=== PATIENT | male | born 1965 | race Caucasian/White ===

== ENCOUNTER 2017-11-13 07:30 | Outpatient (RCR) | payer OTHER, MEDICAID, SELFPAY ==
--- NOTE | 2017-10-31 15:56 | PT.OTN ---
Current Diagnoses Unspecified fracture of lower end of left femur, subsequent encounter for closed fracture with nonunion (11/01/17) Other fracture of left femur, initial encounter for closed fracture (11/01/17) Transition note: On October 31, 2017 our therapy services consisting of Speech, Occupational, and Physical Therapy transitioned from the [employer] electronic documentation system to a new [employer] electronic documentation system.?? All documentation prior to October 31 can be found under [employer] saved data. From October 31 forward all medical record documentation will be in [employer] 6.1.
--- NOTE | 2017-11-01 16:01 | PT.OTN ---
Current Diagnoses Unspecified fracture of lower end of left femur, subsequent encounter for closed fracture with nonunion (11/01/17) Other fracture of left femur, initial encounter for closed fracture (11/01/17) Physical Therapy Treatment Note PT-OP-C Subjective Start: 11/01/17 09:48 Freq: Status: Active Protocol: Activity Type Activity Date Activity User E-Sign Co-Sign Detail Recorded Client Recorded Date Recorded By Document 11/01/17 09:50 EA [id number] 11/01/17 09:55 EA 11/01/17 09:50 OP-PT Subjective [Patient Comments] -Patient Comments Patient reports that his surgeon is quite happy with his progress and is okay to continue physical therapy if necessary. Patient also reports that he has been doing leg exercises in the gym and is looking forward to do it by himself once discharge from PT. No pain complaint at this time. -Patient Reported Progress Improving PT-OP-Q Treatments Start: 11/01/17 09:48 Freq: Status: Active Protocol: Activity Type Activity Date Activity User E-Sign Co-Sign Detail Recorded Client Recorded Date Recorded By Document 11/01/17 09:50 EA [id number] 11/01/17 09:55 EA 11/01/17 09:50 Cardio Equipment [Elliptical] -Duration (Minutes) 8 -Resistance 5 -Other Leg push off w/ full knee EXT to left Gym Equipment [Cable Column (Body Solid)] Leg Extension -Details single alternate legs -Resistance 30-50 lbs Hip Abduction -Details 80 lbs -Resistance 12 reps x 2 Hip Adduction -Resistance 50 lbs -Reps/Time 12 reps x 2 [Shuttle Recovery] Other- 1 -Details Bilateral plyometrics at 90 deg knee flexion -Shuttle Recovery Platform Stable -Reps/Time 10 x 2 Unilateral Squats -Resistance 50lbs -Shuttle Recovery Platform Stable -Reps/Time 12 x 2 Therapeutic Exercises [Sidelying Exercises] 1 -Sidelying Exercise Name Isotonic hip ABD -Side right -Resistance 5-7.5 lbs -Equipment Used AW -Reps/Minutes 15 x 2 [Other Exercises] 4 -Other Exercise Name Hamstring, quads and hip flexors stretch -Side bilateral -Reps/Minutes x 30 SH x 2 3 -Other Exercise Name SLS w/ proper hip/pelvic alignment -Side left -Reps/Minutes 5-10 SH x 3 2 -Other Exercise Name Walk FWD/BWD Lunges w/ single hand support -Side bilateral -Comments 10 steps x 2 1 -Other Exercise Name Side step squat -Side bilateral -Resistance GTB -Reps/Minutes 12 steps x 2 rounds PT-OP-T Assessment and Plan Start: 11/01/17 09:48 Freq: Status: Active Protocol: Activity Type Activity Date Activity User E-Sign Co-Sign Detail Recorded Client Recorded Date Recorded By Document 11/01/17 12:26 JAYDEN [id number] 11/01/17 12:33 JAYDEN 11/01/17 12:26 Physical Therapy Assessment [Assessment Summary] -Assessment Patient continued to exhibit pelvic drop during gait unmindfully but able to correct w/ cues . Overall patient is progressing well as to exercises and activity tolerance. Patient to shedulled two more visits prior to discharge w/ goal of fitness and HEP education. Physical Therapy Plan [Next Visit Focus/Plan] -Next Visit Plan Indep HEP and fitness program .
--- NOTE | 2017-11-07 13:30 | PT.OTN ---
Current Diagnoses Unspecified fracture of lower end of left femur, subsequent encounter for closed fracture with nonunion (11/07/17) Other fracture of left femur, initial encounter for closed fracture (11/07/17) Physical Therapy Treatment Note PT-OP-A Visit Information Start: 11/01/17 09:48 Freq: Status: Active Protocol: Activity Type Activity Date Activity User E-Sign Co-Sign Detail Recorded Client Recorded Date Recorded By Document 11/07/17 11:07 JAYDEN [id number] 11/07/17 11:11 EA 11/07/17 11:07 Out-Patient Physical Therapy Visit Information [Visit Information] -Visit Type Treatment Note -Total Visit Minutes 54 PT-OP-C Subjective Start: 11/01/17 09:48 Freq: Status: Active Protocol: Activity Type Activity Date Activity User E-Sign Co-Sign Detail Recorded Client Recorded Date Recorded By Document 11/07/17 10:53 EA [id number] 11/07/17 11:06 EA 11/07/17 10:53 OP-PT Subjective [Patient Comments] -Patient Comments Patient reports left knee medial and ant side is quite painful today and started 4 days ago after walking for more than 5 blocks; states unable to perform HEP due to pain. PT-OP-Q Treatments Start: 11/01/17 09:48 Freq: Status: Active Protocol: Activity Type Activity Date Activity User E-Sign Co-Sign Detail Recorded Client Recorded Date Recorded By Document 11/07/17 10:53 EA [id number] 11/07/17 11:06 EA 11/07/17 10:53 Cardio Equipment [Recumbent Stepper (Sci-Fit)] -Duration (Minutes) 8 -Resistance 3 Gym Equipment [Cable Column (Body Solid)] Hip Abduction -Details 80 lbs -Resistance 12 reps x 2 Hip Adduction -Resistance 50 lbs -Reps/Time 12 reps x 2 [Shuttle Recovery] Unilateral Squats -Resistance 50lbs -Shuttle Recovery Platform Stable -Reps/Time 12 x 2 Therapeutic Exercises [Sidelying Exercises] 1 -Sidelying Exercise Name Isotonic hip ABD -Side right -Resistance 5-7.5 lbs -Equipment Used AW -Reps/Minutes 15 x 2 [Other Exercises] 4 -Other Exercise Name Hamstring, quads and hip flexors stretch -Side bilateral -Reps/Minutes x 30 SH x 2 3 -Other Exercise Name SLS w/ proper hip/pelvic alignment -Side left -Reps/Minutes 5-10 SH x 3 2 -Other Exercise Name Walk FWD/BWD Lunges w/ single hand support -Side bilateral -Comments 10 steps x 2 1 -Other Exercise Name Side step squat -Side bilateral -Resistance GTB -Reps/Minutes 12 steps x 2 rounds Gait Training [Gait Activity] 1 -Description heel to toe gait with control trunk and pelvis. -Treatment Focus control trunk/ pelvis shifting . PT-OP-T Assessment and Plan Start: 11/01/17 09:48 Freq: Status: Active Protocol: Activity Type Activity Date Activity User E-Sign Co-Sign Detail Recorded Client Recorded Date Recorded By Document 11/07/17 11:07 JAYDEN [id number] 11/07/17 11:11 JAYDEN 11/07/17 11:07 Physical Therapy Assessment [Assessment Summary] -Assessment Medial left knee collateral ligament mild strain noted; unable to tolerate open chain to quads. I recommmended to cut down walking and rest with ice. Oveall patient is progressing well w/ decreased verbal cues during gait. Physical Therapy Plan [Next Visit Focus/Plan] -Next Visit Plan Discharge to HEP and fitness next visit.
--- NOTE | 2017-11-14 08:42 | PT.OTN ---
Current Diagnoses Unspecified fracture of lower end of left femur, subsequent encounter for closed fracture with nonunion (11/13/17) Other fracture of left femur, initial encounter for closed fracture (11/13/17) Physical Therapy Treatment Note PT-OP-A Visit Information Start: 11/01/17 09:48 Freq: Status: Active Protocol: Document 11/13/17 08:15 EA (Rec: 11/13/17 16:48 EA [id number]) Out-Patient Physical Therapy Visit Information Visit Information Visit Type Treatment Note Visit Start Time 07:30 Visit Stop Time 08:15 Total Visit Minutes 45 Visit Number 29 PT-OP-C Subjective Start: 11/01/17 09:48 Freq: Status: Active Protocol: Document 11/13/17 08:15 EA (Rec: 11/13/17 16:48 EA [id number]) Patient Questionnaires Lower Extremity Functional Scale LEFS Impairment 40 to 59% Impaired (Score 32- 47) PT-OP-Q Treatments Start: 11/01/17 09:48 Freq: Status: Active Protocol: Document 11/13/17 08:15 EA (Rec: 11/13/17 16:48 EA [id number]) Cardio Equipment Elliptical Duration (Minutes) 8 Resistance 5 Other Leg push off w/ full knee EXT to left Gym Equipment Cable Column (Body Solid) Leg Extension Details single alternate legs Resistance 30-50 lbs Shuttle Recovery Unilateral Squats Details plyometrics Resistance 25 Shuttle Recovery Platform Stable Reps/Time 12 x 2 Therapeutic Exercises Sidelying Exercises 1 Sidelying Exercise Name Isotonic hip ABD Side right Resistance 5-7.5 lbs Equipment Used AW Reps/Minutes 15 x 2 Other Exercises 4 Other Exercise Name Hamstring, quads and hip flexors stretch Side bilateral Reps/Minutes x 30 SH x 2 Self-Care/Home Management Treatment Education Patient Education Home Exercise Program PT-OP-T Assessment and Plan Start: 11/01/17 09:48 Freq: Status: Active Protocol: Document 11/13/17 08:15 EA (Rec: 11/13/17 16:48 EA [id number]) Physical Therapy Assessment Progress Towards Goals Progress Comments No progress noted at this time Assessment Summary Assessment Patient to discharge from skilled PT due to lack progress at this time. HEP and Fitness exercises program given and demonstrates good understanding. Physical Therapy Plan Discharge Physical Therapy Discharge Reasons Plateau in Progress Discharge Comments Patient is discharge today due to progress plateaued. Deficits noted at this time is compensatory pelvic dropped gait to left. Weakness to left hip Adductor and decreased tolerance to knee ext during stance phase may be the reason , otherwise it could be habitual gait as patient able to correct it with cues. Patient was educated regarding safety and pre-cautions with HEP and fitness program. At the time of discharge, patient demonstrates increased tolerance to exercises routine . Form and execution of each therapeutic exercises shows profeciency. Patient recommended to cont gait practice and use of STC to improve gait pattern and prevent pelvic dropped. Patient recommended also to see his primary physician for further evaluation and treatment. Next Visit Focus/Plan Next Visit Plan Discharge to PT
--- NOTE | 2017-11-14 08:43 | PT.OPDS ---
Current Diagnoses Unspecified fracture of lower end of left femur, subsequent encounter for closed fracture with nonunion (11/13/17) Other fracture of left femur, initial encounter for closed fracture (11/13/17) Provider Visit Care Team Role Provider Type Yani Macias MD Family Provider Non-Staff Primary Care Provider Specialty: Family Practice Address: [address] [place], [address] Email: Reny Pemberton Attending Provider Non-Staff Specialty: Orthopedics Address: [address] [place] [address], [id number] Email: Discharge Summary PT-OP-C Subjective Start: 11/01/17 09:48 Freq: Status: Active Protocol: Document 11/13/17 08:15 EA (Rec: 11/13/17 16:48 EA [id number]) Patient Questionnaires Lower Extremity Functional Scale LEFS Impairment 40 to 59% Impaired (Score 32- 47) PT-OP-T Assessment and Plan Start: 11/01/17 09:48 Freq: Status: Active Protocol: Document 11/13/17 08:15 EA (Rec: 11/13/17 16:48 EA [id number]) Physical Therapy Assessment Progress Towards Goals Progress Comments No progress noted at this time Assessment Summary Assessment Patient to discharge from skilled PT due to lack progress at this time. HEP and Fitness exercises program given and demonstrates good understanding. Physical Therapy Plan Discharge Physical Therapy Discharge Reasons Plateau in Progress Discharge Comments Patient is discharge today due to progress plateaued. Deficits noted at this time is compensatory pelvic dropped gait to left. Weakness to left hip Adductor and decreased tolerance to knee ext during stance phase may be the reason , otherwise it could be habitual gait as patient able to correct it with cues. Patient was educated regarding safety and pre-cautions with HEP and fitness program. At the time of discharge, patient demonstrates increased tolerance to exercises routine . Form and execution of each therapeutic exercises shows profeciency. Patient recommended to cont gait practice and use of STC to improve gait pattern and prevent pelvic dropped. Patient recommended also to see his primary physician for further evaluation and treatment. Next Visit Focus/Plan Next Visit Plan Discharge to PT
== END 2017-11-21 13:12 ==
LOC: PHYS 07:30
PROVIDERS: Family Provider Family Medicine; PCP Family Medicine; Visit Provider Physician Assistant
DX: S72.8X2A Other fracture of left femur, initial encounter for closed fracture (principal); S72.402K Unspecified fracture of lower end of left femur, subsequent encounter for closed fracture with nonunion
CPT/HCPCS: 97014; 97110; 97535; G0283

== ENCOUNTER 2020-11-01 07:14 | Emergency (ER) | payer OTHER, MEDICAID, SELFPAY ==
[2020-11-01 07:30] VITALS: BP 174/102; PULSE 76; RESP 18; TEMP 36.6; O2SAT 96; BMI 25.7
--- NOTE | 2020-11-01 07:48 | PC.NURSE ---
left upper back tooth.
--- NOTE | 2020-11-01 08:09 | ED.DENTAL ---
HPI - Dental/Oral General Chief complaint: Dental/Oral Stated complaint: abcess on tooth Time Seen by Provider: 11/01/20 07:57 Source: patient Mode of arrival: Ambulatory Limitations: no limitations History of Present Illness HPI Narrative: This is a 55-year-old male who comes with concern for abscess on his #16 tooth. Patient states 2, almost 3 weeks ago he had a filling placed by his dentist. He states he noticed a ridge along the edge Um adjacent to the skin and then has since developed swelling particularly on the medial side and appreciated that the tissue is swollen above the tooth. Patient's states it has become increasingly painful. Patient has not had any fevers. He does have discomfort with chewing, spinning but denies any airway impingement, he denies any swelling his tongue or oropharynx. Patient states that he contacted to follow-up but they cannot see him till this following . Patient states he does have a history of diabetes which can be controlled with diet when he is inappropriate weight range but states he will take metformin or glipizide intermittently when his weight is higher. Patient has a history of multiple orthopedic injuries and has rods in both lower extremities as well as surgical fixation in bilateral lower extremities in his left upper extremity. He had some oxycodone left over from these injuries and this was helpful for his pain. He had also tried ibuprofen with minimal improvement. Patient denies any allergies to medications. Related Data Previous Rx's Medication Instructions Recorded penicillin V potassium 500 mg PO QID #40 tab 11/01/20 Review of Systems Review of Systems ROS Unobtainable: All systems reviewed & are unremarkable except as noted in HPI and below Patient History Social History Smoking Status: Never smoker Smoking Status: Never smoker alcohol intake frequency: 0-2 drinks per day Substance Use Type: marijuana Exam Narrative Exam Narrative: GEN: well nourished, well appearing male, alert and oriented x 3, patient appears to be in mild distress. HEENT: Atraumatic, pupils are equal round reactive to light, extraocular movements are intact, nares are clear, left TM is clear with no fluid, right TM has some scant fluid but no erythema with slight reflex intact. And no bulge of the TM.. Throat is clear without any exudates, erythema, tonsillar enlargement or uvular deviation. Patient has swelling on the medial side of the soft tissue of the #16 tooth on the left upper side. There is no fluctuance appreciated. No pointing or obvious purulent fluid collection. Patient does not have any drainage from the area. Patient has less swelling on the lateral side. There is some mild erythema along the edges well. Patient has normal voice with no muffled speech. No stridor, no swelling of the oropharynx is appreciated. No swelling of the outer cheek is appreciated. Patient does not have any erythema or skin changes noted otherwise. HEART: Regular rate and rhythm without murmur, clicks, rubs. LUNGS:Lungs clear to auscultation, no wheezes, rales, crackles, chest moves symmetrically ABD:bowel sounds normal, soft, non-tender, no guarding, rebound, rigidity, no masses noted, no hepatosplenomegaly MSCL: full range of motion, normal gait NEURO:CN 2-12 intact, sensation normal Initial Vital Signs Initial Vital Signs: Vital Signs Temperature 97.9 F 11/01/20 07:30 Pulse Rate 76 11/01/20 07:30 Respiratory Rate 18 11/01/20 07:30 Blood Pressure 174/102 H 11/01/20 07:30 Pulse Oximetry 96 11/01/20 07:30 Course Vital Signs Vital signs: Vital Signs - 8 hr 11/01/20 07:30 Temperature 97.9 F Pulse Rate 76 Respiratory Rate 18 Blood Pressure 174/102 H Pulse Oximetry 96 MDM - Dental/Oral MDM Narrative Medical decision making narrative: This is a 55-year-old male who appears to be developing an abscess but there is no current fluid collection that appears appropriate for drainage. Plan to start patient on penicillin and have a follow-up with his dentist practice on scheduled follow-up on . Patient states he has a large amount of oxycodone available from prior orthopedic injuries which was helpful for his pain and plan to continue with this in addition to Tylenol and ibuprofen. Return precautions were discussed and patient expresses his understanding. Discharge Plan Departure Patient Disposition: Home Clinical Impression: Dental infection Instructions: Tooth Abscess Activity Restrictions/Additional Instructions: Follow up with your dentist this week. Take antibiotics until completely gone. Prescription was sent to [facility] in [place]. You may take Tylenol up to a 1000 mg every 8 hours and or ibuprofen up to 800 mg every 8 hours. If this is inadequate you may take your oxycodone 5-10 mg every 6 hours as needed for pain. This medication will make you constipated so make sure to take a stool softener once or twice daily until stools are soft and regular. Please return for fevers, new or worsening swelling of the face, lips, tongue or oropharynx if you are having stridor, difficulty with breathing, muffled voice or inability to swallow liquids or your own saliva. Prescriptions: New penicillin V potassium 500 mg tablet 500 mg PO QID Qty: 40 RF: 0 Referrals: Yani Macias MD [Primary Care Provider] -
--- NOTE | 2020-11-01 08:37 | PC.NURSE ---
Pt seen by Dr Sol. Pt not in room when nurse attempted to DC. Per Dr Sol, pt made aware of DC instructions and that RX was sent to pharmacy.
== END 2020-11-01 08:39 | disposition home or self-care (01) ==
PROVIDERS: Emergency Provider Emergency Medicine; Family Provider Family Medicine; PCP Family Medicine
DX: K04.7 Periapical abscess without sinus (principal)
CPT/HCPCS: 99281